=== PATIENT | male | born 1975 | race Caucasian/White ===

== ENCOUNTER → 2020-10-24 | Outpatient (REF) | payer OTHER ==
[~2020-10-24] MED LIST: ABIL10TA9 PO; BIKT1TAB PO; BUSP10TA PO; WELLTAB40 PO
[2020-10-24 14:39] LABS: APPEARANCE, URINE CLEAR (CLEAR); BACTERIA, URINE AUTO NEGATIVE (NEGATIVE); BILIRUBIN, URINE AUTO NEGATIVE (NEGATIVE); BLOOD, URINE BLOOD NEGATIVE (NEGATIVE); CALCIUM OXALATE CRYSTALS SMALL; COLOR, URINE YELLOW (YELLOW); GLUCOSE, URINE (UA) AUTO NEGATIVE (NEGATIVE); KETONE, URINE AUTO TRACE mg/dL (NEGATIVE); LEUKOCYTE ESTERASE, URINE AUTO NEGATIVE (NEGATIVE); MUCUS, URINE SMALL (NEGATIVE); NITRITE, URINE AUTO NEGATIVE (NEGATIVE); PROTEIN, URINE AUTO NEGATIVE (NEGATIVE); RBC, URINE AUTO 1 /HPF (0-3); SPECIFIC GRAVITY URINE AUTO 1.029 (1.002-1.035); SQUAMOUS EPITHELIAL CELL UR AU 0 /HPF (0-6); UROBILINOGEN, URINE AUTO 0.2 mg/dL (0.0-2.0); WBC, URINE AUTO 2 /HPF (0-3)
[2020-10-24 14:49] LABS: ALBUMIN 4.1 GM/DL (3.2-5.2); ALT/SGPT 25 U/L (12-78); BILIRUBIN,TOTAL 0.2 MG/DL (0.2-1.0); BLOOD UREA NITROGEN 21 MG/DL (7-18); CALCIUM LEVEL 9.4 MG/DL (8.5-10.1); CARBON DIOXIDE LEVEL 28 MEQ/L (21-32); CHLORIDE LEVEL 107 MEQ/L (98-107); CHOLESTEROL LEVEL 178 MG/DL (<200); CREATININE FOR GFR 1.05 MG/DL (0.70-1.30); FREE T4 0.65 NG/DL (0.76-1.46); GLOMERULAR FILTRATION RATE > 60.0 (>60); GLUCOSE, FASTING 90 MG/DL (70-100); HDL CHOLESTEROL 51 MG/DL (>40); HEPATITIS B SURFACE ANTIBODY NEGATIVE (POSITIVE); LDL CHOLESTEROL 120 MG/DL (<100); NON-HDL-C 127 MG/DL; POTASSIUM SERUM 4.9 MEQ/L (3.5-5.1); SODIUM LEVEL 139 MEQ/L (136-145); TOTAL PROTEIN 8.1 GM/DL (6.4-8.2); TRIGLYCERIDES LEVEL 34 MG/DL (<150)
[2020-10-24 14:58] LABS: HEPATITIS B SURFACE ANTIGEN NEGATIVE (NEGATIVE)
[2020-10-24 15:27] LABS: HEPATITIS C VIRUS ABY INDEX < 0.0 INDEX (<0.8)
[2020-10-27 01:07] LABS: % CD8 Pos Lymph 65.9 % (12.0-35.5); %CD4 Pos Lymphs 16.9 % (30.8-58.5); ABS Basophils 0.1 x10E3/uL (0.0-0.2); ABS Eosinophils 0.2 x10E3/uL (0.0-0.4); ABS Lymphs 2.4 x10E3/uL (0.7-3.1); ABS Monocytes 0.5 x10E3/uL (0.1-0.9); ABS Neutophils 3.6 x10E3/uL (1.4-7.0); Abs CD4 Helper 406 /uL (359-1519); Abs CD8 Suppres 1582 /uL (109-897); CD4/CD8 Ratio 0.26 (0.92-3.72); CHLAMYDIA PHARYNGEAL APTIMA Negative (Negative); Eosinophils 2 % (Not Estab.); GC PHARYNGEAL APTIMA Negative (Negative); HCT 41.5 % (37.5-51.0); HEPATITIS A IgG TOTAL Positive (Negative); HEPATITIS B CORE ANTIBODY IGG Negative (Negative); HGB 14.4 g/dL (13.0-17.7); HIV-1 RNA PCR QUANT 2 LC550285 710 copies/mL (.); HIV-1 RNA PCR QUANT 3 LC550285 2.851 (.); Immature Grans 0 % (Not Estab.); Lymphocytes 36 % (Not Estab.); MCH 31.2 pg (26.6-33.0); MCHC 34.7 g/dL (31.5-35.7); MCV 90 fL (79-97); Monocytes 7 % (Not Estab.); Neutrophils 54 % (Not Estab.); Platelets 304 x10E3/uL (150-450); RBC 4.62 x10E6/uL (4.14-5.80); RDW 14.6 % (11.6-15.4); WBC 6.8 x10E3/uL (3.4-10.8)
== END ==
LOC: M SFHCPLAZ 08:49
PROVIDERS: ATTEND Internal Medicine Infectious Disease
DX: B20 Human immunodeficiency virus [HIV] disease (principal); Z86.19 Personal history of other infectious and parasitic diseases; Z11.3 Encounter for screening for infections with a predominantly sexual mode of transmission; Z13.220 Encounter for screening for lipoid disorders; E03.2 Hypothyroidism due to medicaments and other exogenous substances

== ENCOUNTER 2020-10-25 01:46 | Inpatient (IN) | payer OTHER ==
[~2020-10-25] VITALS: Ht 182.9 cm; Wt 81.3 kg
[2020-10-25] MEDS ORDERED: BUSP10TA PO ×2 (02:11)
[2020-10-25] MEDS ORDERED: WELLTAB40 PO (02:11)
[2020-10-25] MEDS ORDERED: ABIL10TA9 PO (02:11)
[2020-10-25] MEDS ORDERED: BIKT1TAB PO (02:11)
[2020-10-25 02:31] LABS: HEMATOCRIT 42.4 % (42.0-52.0); HEMOGLOBIN 13.4 g/dl (13.5-17.5); MEAN CORPUSCULAR HEMOGLOBIN 29.3 pg (27.0-33.0); MEAN CORPUSCULAR HGB CONC 31.6 g/dl (32.0-36.5); MEAN CORPUSCULAR VOLUME 92.8 fl (80.0-96.0); PLATELET COUNT, AUTOMATED 291 10^3/uL (150-450); RED BLOOD COUNT 4.57 10^6/uL (4.30-6.10); WHITE BLOOD COUNT 8.2 10^3/uL (4.0-10.0)
[2020-10-25] MEDS ORDERED: LORazepam 2 MG TAB PO STA (02:40)
[2020-10-25 02:56] LABS: AMPHETAMINES LEVEL URINE POSITIVE (NEGATIVE); BARBITURATES URINE NEGATIVE (NEGATIVE); BENZODIAZEPINES URINE NEGATIVE (NEGATIVE); CANNABINOIDS URINE NEGATIVE (NEGATIVE); COCAINE METABOLITE URINE NEGATIVE (NEGATIVE); METHADONE URINE NEGATIVE (NEGATIVE); OPIATES URINE NEGATIVE (NEGATIVE); PHENCYCLIDINE URINE NEGATIVE (NEGATIVE)
[2020-10-25 03:09] LABS: ACETAMINOPHEN LEVEL < 2.0 UG/ML (10.0-30.0); ALBUMIN 4.1 GM/DL (3.2-5.2); ALT/SGPT 22 U/L (12-78); BILIRUBIN,DIRECT < 0.1 MG/DL (0.0-0.2); BILIRUBIN,TOTAL 0.2 MG/DL (0.2-1.0); BLOOD UREA NITROGEN 15 MG/DL (7-18); CARBON DIOXIDE LEVEL 27 MEQ/L (21-32); CHLORIDE LEVEL 109 MEQ/L (98-107); CREATININE FOR GFR 1.07 MG/DL (0.70-1.30); ETHYL ALCOHOL (ETHANOL) 0.099 % (0.000-0.010); GLOMERULAR FILTRATION RATE > 60.0 (>60); GLUCOSE, FASTING 78 MG/DL (70-100); POTASSIUM SERUM 3.7 MEQ/L (3.5-5.1); SODIUM LEVEL 141 MEQ/L (136-145); TOTAL PROTEIN 8.4 GM/DL (6.4-8.2)
[2020-10-25 04:03] LABS: FREE T4 0.68 NG/DL (0.76-1.46)
[2020-10-25] MEDS ORDERED: LEVOTHYROXINE 100MCG TABLET (0.1MG) PO ONE (13:25)
[2020-10-25 14:12] LABS: RSV AMPLIFICATION NEGATIVE (NEGATIVE)
[2020-10-25] MEDS ORDERED: MOM 30ML SUSPENSION UDC PO PRN (15:00)
[2020-10-25] MEDS ORDERED: ACETAMINOPHEN TAB 650MG DOSE (2X325MG) PO PRN (15:00)
[2020-10-25] MEDS ORDERED: MAALOX 30 ML SUSP *UDC PO PRN (15:00)
[2020-10-25] MEDS: busPIRone 10 MG TAB PO SCH (21:00)
[2020-10-26 06:23] VITALS: BP 116/65
[2020-10-26] MEDS: buPROPion **XL** TABLET 150MG (WELLBUTRIN XL) PO SCH (08:31)
[2020-10-26] MEDS: ARIPiprazole 10 MG TAB PO SCH (08:31)
[2020-10-26] MEDS: busPIRone 10 MG TAB PO SCH ×2 (08:31→22:16)
--- NOTE | 2020-10-26 13:44 | HPEPDOC ---
[facility] Medical History & Physical Date of Admission Oct 25, 2020 Date of Service: Oct 26, 2020 History and Physical CHIEF COMPLAINT: anxiety/suicidal ideation HISTORY OF PRESENT ILLNESS: 45 year old male presents to emergency department for anxiety, requesting Ativan. On further evaluation. He stated he would prefer to "keep silent" as per his family (brother). He stated that if he had a gun he would use it to shoot himself. His brother also notes he has had previous episodes of hurting himself in the past. Patient notes medical noncompliance with medications, both psychiatric and medical. Presently he denies chest pain, shortness of breath, abdominal pain, nausea, vomiting, diarrhea. PAST MEDICAL HISTORY: #HIV - no aids related symptoms, CD4 elevated, viral load undetected while on medication #gonorrhea, chlamydia, syphilis #Hypothyroidism related to medications ALLERGIES: Please see below. REVIEW OF SYSTEMS: Negative except as per HPI. HOME MEDICATIONS: Please see below. PHYSICAL EXAMINATION: VITAL SIGNS: See below General: NAD, sitting comfortably in chair HEENT: NC/AT, EOMI Lungs: CTA B/L Heart: +S1S2, RRR Abd: soft, NT, +BS Ext: no edema LABORATORY DATA: See below. MICROBIOLOGY: Please see below. A/P: 45-year-old male with past medical history of HIV admitted for suicidal ideation. #SI - as per primary team - psychiatry #HIV - follows with Dr. Mendez - no aids defining illnesses in the past - consult Dr. Mendez regarding his home meds #hypothyroidism - states he has had issues with hypothyroidism in the past - will check complete thyroid profile - start synthroid 25 mcg Thank you for this consultation. We will continue to follow. Vital Signs Vital Signs Date Time Temp Pulse Resp B/P (MAP) Pulse Ox O2 Delivery O2 Flow Rate FiO2 10/26/20 08:15 Room Air 10/26/20 06:23 99.2 68 16 116/65 (82) 99 Laboratory Data Labs 24H Laboratory Tests 2 10/25/20 13:22: Coronavirus (COVID-19)(PCR) NEGATIVE, Influenza Type A (RT-PCR) NEGATIVE, Influenza Type B (RT-PCR) NEGATIVE, Respiratory Syncytial Virus (PCR) NEGATIVE Home Medications Scheduled Aripiprazole (Abilify) 10 Mg Tablet, 10 MG PO DAILY Bictegrav/Emtricit/Tenofov Ala (Biktarvy 50-200-25 mg Tablet) 1 Each Tablet, 1 TAB PO DAILY Bupropion HCl (Wellbutrin Xl) 300 Mg Tab.er.24h, 300 MG PO QAM Buspirone HCl (Buspirone HCl) 10 Mg Tablet, 10 MG PO DAILY Buspirone HCl (Buspirone HCl) 10 Mg Tablet, 10 MG PO BID Allergies Coded Allergies: No Known Allergies (Unverified , 10/25/20) A-FIB/CHADSVASC A-FIB History Current/History of A-Fib/PAF?: No RENAE JAVIER MD Oct 26, 2020 13:44
--- NOTE | 2020-10-26 14:18 | ECGEPIP ---
[facility] - ED Test Date: 2020-10-25 Pat Name: JIA XIE Department: Room: - Gender: Male Information Manager: ed : 1975 Requested By: TARAH Navarrete Order Number: [id number] Reading MD: Kika Mora Measurements Intervals [place] Rate: 82 P: 40 WY: 150 QRS: 72 QRSD: 98 T: 55 QT: 374 QTc: 436 Interpretive Statements Normal sinus rhythm No prior Electronically Signed on 10-26-2020 14:18:18 EST by Kika Mora
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
[2020-10-26 16:19] VITALS: BP 100/54
[2020-10-26] MEDS: LEVOTHYROXINE 25MCG TABLET (0.025MG) PO SCH (16:23)
[2020-10-26] MEDS: OLANZapine 5 MG TAB PO SCH (22:16)
[2020-10-27] MEDS: LEVOTHYROXINE 25MCG TABLET (0.025MG) PO SCH (06:09)
[2020-10-27 06:20] VITALS: BP 95/54
[2020-10-27] MEDS: busPIRone 10 MG TAB PO SCH ×2 (09:17→20:03)
[2020-10-27] MEDS: ARIPiprazole 10 MG TAB PO SCH (09:18)
[2020-10-27] MEDS: buPROPion **XL** TABLET 150MG (WELLBUTRIN XL) PO SCH (09:18)
[2020-10-27] MEDS: OLANZapine 5 MG TAB PO SCH (09:18)
[2020-10-27] MEDS ORDERED: BENZTROPINE 1 MG TAB PO ONE (12:30)
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
[2020-10-27] MEDS: BIKTARVY PO SCH (15:41)
[2020-10-27 17:11] VITALS: BP 133/77
[2020-10-27] MEDS: traZODone 50 MG TAB PO PRN (20:03)
[2020-10-28] MEDS ORDERED: UNRESOLVED PATIENT OWN MED ORDER XX SCH (00:01)
[2020-10-28] MEDS: LEVOTHYROXINE 25MCG TABLET (0.025MG) PO SCH (05:53)
[2020-10-28 06:06] VITALS: BP 108/65
[2020-10-28] MEDS: BIKTARVY PO SCH (08:08)
[2020-10-28] MEDS: buPROPion **XL** TABLET 150MG (WELLBUTRIN XL) PO SCH (08:08)
[2020-10-28] MEDS: ARIPiprazole 10 MG TAB PO SCH (08:08)
[2020-10-28] MEDS: busPIRone 10 MG TAB PO SCH ×2 (08:08→20:01)
[2020-10-28] MEDS: NICOTINE 21MG/24HR 1 EA TRANSDERMAL TD SCH (11:28)
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
[2020-10-28] MEDS ORDERED: ARIPiprazole MONOHYDRATE 400 MG INJ (ABILIFY) IM ONE (15:00)
[2020-10-28 16:46] VITALS: BP 105/63
[2020-10-28] MEDS: traZODone 50 MG TAB PO PRN (20:01)
[2020-10-29] MEDS: LEVOTHYROXINE 25MCG TABLET (0.025MG) PO SCH (05:52)
[2020-10-29 06:35] VITALS: BP 110/59
[2020-10-29] MEDS: BIKTARVY PO SCH (08:33)
[2020-10-29] MEDS: buPROPion **XL** TABLET 150MG (WELLBUTRIN XL) PO SCH (08:34)
[2020-10-29] MEDS: busPIRone 10 MG TAB PO SCH ×2 (08:34→21:00)
[2020-10-29] MEDS: NICOTINE 21MG/24HR 1 EA TRANSDERMAL TD SCH (08:34)
[2020-10-29] MEDS: ARIPiprazole 10 MG TAB PO SCH (08:34)
[2020-10-29 16:22] VITALS: BP 102/59
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
[2020-10-29] MEDS: risperiDONE 2 MG TAB PO SCH (21:00)
[2020-10-30] MEDS: LEVOTHYROXINE 25MCG TABLET (0.025MG) PO SCH (06:11)
[2020-10-30 06:46] VITALS: BP 101/57
[2020-10-30] MEDS: NICOTINE 21MG/24HR 1 EA TRANSDERMAL TD SCH (09:04)
[2020-10-30] MEDS: busPIRone 10 MG TAB PO SCH ×2 (09:05→20:17)
[2020-10-30] MEDS: BIKTARVY PO SCH (09:05)
[2020-10-30] MEDS: buPROPion **XL** TABLET 150MG (WELLBUTRIN XL) PO SCH (09:05)
[2020-10-30] MEDS: risperiDONE 1 MG TAB PO SCH (09:05)
[2020-10-30 16:22] VITALS: BP 112/62
[2020-10-30] MEDS: traZODone 50 MG TAB PO PRN (20:17)
[2020-10-30] MEDS: risperiDONE 2 MG TAB PO SCH (20:17)
[2020-10-31] MEDS: LEVOTHYROXINE 25MCG TABLET (0.025MG) PO SCH (06:14)
[2020-10-31 07:07] VITALS: BP 102/62
[2020-10-31] MEDS: risperiDONE 1 MG TAB PO SCH (08:36)
[2020-10-31] MEDS: busPIRone 10 MG TAB PO SCH ×2 (08:36→20:01)
[2020-10-31] MEDS: buPROPion **XL** TABLET 150MG (WELLBUTRIN XL) PO SCH (08:36)
[2020-10-31] MEDS: BIKTARVY PO SCH (08:37)
[2020-10-31] MEDS: NICOTINE 21MG/24HR 1 EA TRANSDERMAL TD SCH (08:39)
--- NOTE | 2020-10-31 10:52 | IPNPDOC ---
Text Note Date of Service The patient was seen on 10/31/20. NOTE Subjective: Patient seen and examined at bedside. Patient voices no new complaints. He states he was treated about 2 years ago for his syphilis with one dose of penicillin.. He states he has been relatively asymptomatic with no obvious rash since then. Objective: VITAL SIGNS: See below General: NAD, sitting comfortably at edge of bed HEENT: NC/AT, EOMI Lungs: CTA B/L Heart: +S1S2, RRR Abd: soft, NT, +BS Ext: no edema LABORATORY DATA: See below. MICROBIOLOGY: Please see below. A/P: 45-year-old male with past medical history of HIV admitted for suicidal ideation. #SI - as per primary team - psychiatry #HIV - follows with Dr. Mendez - no aids defining illnesses in the past - continue current HIV regimen - discussed with ID #syphilis - previous treatment not clear - previous titers unknown - still waiting for old records - ID c/s pending #hypothyroidism - states he has had issues with hypothyroidism in the past - continue synthroid 25 mcg VS,Fishbone, I+O VS, Fishbone, I+O Vital Signs Date Time Temp Pulse Resp B/P (MAP) Pulse Ox O2 Delivery O2 Flow Rate FiO2 10/31/20 07:07 98.0 83 20 102/62 (75) 100 Room Air RENAE JAVIER MD Oct 31, 2020 10:52
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
[2020-10-31] MEDS ORDERED: LIDOCAINE 2% INJ 100 MG/5 ML SYRINGE IV STA (15:58)
[2020-10-31] MEDS ORDERED: LIDOCAINE 2% MDV 20ML VIAL IM STA (16:23)
[2020-10-31] MEDS ORDERED: LIDOCAINE 2% MDV 20ML VIAL IM ONE (17:55)
[2020-10-31 17:59] VITALS: BP 101/65
[2020-10-31] MEDS ORDERED: BICILLIN L-A 2,400,000 UNIT/4 ML SYRINGE (J0561-24)PENICILLIN G BENZATINE IM ONE (18:00)
[2020-10-31] MEDS: risperiDONE 2 MG TAB PO SCH (20:02)
[2020-10-31] MEDS: traZODone 50 MG TAB PO PRN (20:02)
[2020-11-01] MEDS: LEVOTHYROXINE 75MCG TABLET (0.075MG) PO SCH (06:07)
[2020-11-01 06:57] VITALS: BP 129/71
[2020-11-01] MEDS: BIKTARVY PO SCH (09:10)
[2020-11-01] MEDS: risperiDONE 1 MG TAB PO SCH (09:11)
[2020-11-01] MEDS: busPIRone 10 MG TAB PO SCH ×2 (09:11→20:01)
[2020-11-01] MEDS: buPROPion **XL** TABLET 150MG (WELLBUTRIN XL) PO SCH (09:11)
[2020-11-01] MEDS: NICOTINE 21MG/24HR 1 EA TRANSDERMAL TD SCH (09:11)
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
[2020-11-01] MEDS ORDERED: LEVO75TA4 PO (13:53)
[2020-11-01] MEDS ORDERED: RISP-9 PO (13:53)
[2020-11-01] MEDS ORDERED: RISP-8 PO (13:53)
[2020-11-01] MEDS ORDERED: ABIL1INJ2 IM (13:56)
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
[2020-11-01 17:49] VITALS: BP 117/74
[2020-11-01] MEDS: risperiDONE 2 MG TAB PO SCH (20:01)
[2020-11-01] MEDS: traZODone 50 MG TAB PO PRN (20:01)
[2020-11-02 06:00] VITALS: BP 136/71
[2020-11-02] MEDS: LEVOTHYROXINE 75MCG TABLET (0.075MG) PO SCH (06:25)
[2020-11-02] MEDS: buPROPion **XL** TABLET 150MG (WELLBUTRIN XL) PO SCH (08:35)
[2020-11-02] MEDS: busPIRone 10 MG TAB PO SCH (08:35)
[2020-11-02] MEDS: BIKTARVY PO SCH (08:35)
[2020-11-02] MEDS: risperiDONE 1 MG TAB PO SCH (08:35)
[2020-11-02] MEDS: NICOTINE 21MG/24HR 1 EA TRANSDERMAL TD SCH (08:36)
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
== END 2020-11-02 11:45 | disposition home or self-care (01) | DRG 753 ==
LOC: M ED 01:46 → M ED INP 14:59 → M PSY 17:10
PROVIDERS: ADMIT Psychiatry & Neurology Child & Adolescent Psychiatry; ATTEND Psychiatry & Neurology Psychiatry
DX: F31.5 Bipolar disorder, current episode depressed, severe, with psychotic features (principal); B20 Human immunodeficiency virus [HIV] disease; Z91.14 Patient's other noncompliance with medication regimen; F10.10 Alcohol abuse, uncomplicated; F17.200 Nicotine dependence, unspecified, uncomplicated; Z59.9 Problem related to housing and economic circumstances, unspecified; Z65.3 Problems related to other legal circumstances; Z79.899 Other long term (current) drug therapy; E03.9 Hypothyroidism, unspecified; Z11.3 Encounter for screening for infections with a predominantly sexual mode of transmission